=== PATIENT | female | born 1970 | race Caucasian/White ===

== ENCOUNTER 2019-03-24 02:47 | Inpatient (IN) | payer MEDICAID, OTHER, SELFPAY ==
[~2019-03-24] VITALS: Ht 167.6 cm; Wt 73.4 kg
[2019-03-24] MEDS ORDERED: diphenhydrAMINE 25 MG CAP PO ONE (04:15)
[2019-03-24] MEDS ORDERED: traZODone 50 MG TAB PO ONE (04:30)
[2019-03-24] MEDS ORDERED: ALPR0.25 PO (07:54)
[2019-03-24] MEDS ORDERED: ACET-683 PO (07:54)
[2019-03-24] MEDS ORDERED: SERT50TA29 PO (07:54)
[2019-03-24] MEDS ORDERED: INSUHUMDS SC (07:54)
[2019-03-24] MEDS ORDERED: BASA100I SC (07:54)
[2019-03-24] MEDS ORDERED: BACT800T5 PO (07:56)
[2019-03-24] MEDS: BACTRIM 160MG/800MG DS TAB PO SCH ×3 (08:58→23:12)
[2019-03-24] MEDS ORDERED: SERTRALINE HCL 50 MG TAB PO ONE (09:00)
[2019-03-24] MEDS ORDERED: VOLT1GEL15 TOP (10:09)
[2019-03-24] MEDS ORDERED: SERT25TA85 PO (10:09)
[2019-03-24] MEDS ORDERED: VIVE0.03 TD (10:09)
[2019-03-24] MEDS ORDERED: ALPRAZolam 0.25 MG TAB PO ONE (11:30)
[2019-03-24] MEDS ORDERED: MAALOX 30 ML SUSP *UDC PO PRN (15:00)
[2019-03-24] MEDS ORDERED: MOM 30ML SUSPENSION UDC PO PRN (15:00)
[2019-03-24 21:00] VITALS: BP 116/66
[2019-03-24] MEDS: traZODone 50 MG TAB PO PRN (22:29)
[2019-03-24] MEDS ORDERED: GLUCAGON FOR INJ 1 MG VIAL (J1610) SC PRN (22:30)
[2019-03-24] MEDS ORDERED: DEXTROSE 50% 50 ML SYRINGE IV PRN (22:30)
[2019-03-24] MEDS ORDERED: GLUCOSE 4 GM CHEW TABLET PO PRN (22:30)
[2019-03-24] MEDS: IBUPROFEN 400 MG TAB PO PRN (22:31)
[2019-03-25 06:52] VITALS: BP 95/54
[2019-03-25] MEDS: HumaLOG INSULIN (NovoLOG) PER UNIT SC SCH ×3 (07:43→17:19)
[2019-03-25] MEDS: BACTRIM 160MG/800MG DS TAB PO SCH ×2 (08:49→20:18)
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
[2019-03-25] MEDS ORDERED: SERTRALINE 100 MG TAB PO ONE (14:00)
[2019-03-25] MEDS ORDERED: SUMAtriptan SUCCINATE 25 MG TAB PO ONE (14:45)
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
[2019-03-25 16:24] VITALS: BP 112/69
[2019-03-25] MEDS: LEVEMIR (INSULIN DETEMIR) 1 UNITS/0.01ML SC SCH (20:18)
[2019-03-25] MEDS: traZODone 50 MG TAB PO PRN (21:24)
[2019-03-26 06:57] VITALS: BP 90/50
[2019-03-26 07:07] LABS: HEMATOCRIT 33.4 % (36.0-47.0); MEAN CORPUSCULAR HEMOGLOBIN 28.4 pg (27.0-33.0); MEAN CORPUSCULAR HGB CONC 32.9 g/dl (32.0-36.5); MEAN CORPUSCULAR VOLUME 86.1 fl (80.0-96.0); PLATELET COUNT, AUTOMATED 295 10^3/uL (150-450); RED BLOOD COUNT 3.88 10^6/uL (4.00-5.40); WHITE BLOOD COUNT 6.8 10^3/uL (4.0-10.0)
[2019-03-26] MEDS: HumaLOG INSULIN (NovoLOG) PER UNIT SC SCH ×3 (07:23→17:07)
[2019-03-26 07:27] LABS: ERYTHROCYTE SEDIMENTATION RATE 35 mm/hr (0-30)
[2019-03-26 07:41] LABS: ALBUMIN 3.3 GM/DL (3.2-5.2); ALT/SGPT 17 U/L (12-78); BILIRUBIN,TOTAL 0.3 MG/DL (0.2-1.0); BLOOD UREA NITROGEN 16 MG/DL (7-18); CALCIUM LEVEL 9.2 MG/DL (8.5-10.1); CARBON DIOXIDE LEVEL 27 MEQ/L (21-32); CHLORIDE LEVEL 109 MEQ/L (98-107); CHOLESTEROL LEVEL 177 MG/DL (<200); CHOLESTEROL RISK RATIO 3.612 (<5); CREATININE FOR GFR 0.91 MG/DL (0.55-1.30); GLOMERULAR FILTRATION RATE > 60.0 (>51); GLUCOSE, FASTING 124 MG/DL (70-100); HDL CHOLESTEROL 49 MG/DL (>40); LDL CHOLESTEROL 109 MG/DL (<100); MAGNESIUM LEVEL 2.4 MG/DL (1.8-2.4); NON-HDL-C 128 MG/DL; POTASSIUM SERUM 4.7 MEQ/L (3.5-5.1); SODIUM LEVEL 142 MEQ/L (136-145); TOTAL PROTEIN 6.4 GM/DL (6.4-8.2); TRIGLYCERIDES LEVEL 96 MG/DL (<150)
[2019-03-26 08:06] LABS: HEMOGLOBIN A1c 8.1 %
[2019-03-26] MEDS: BACTRIM 160MG/800MG DS TAB PO SCH (08:29)
[2019-03-26] MEDS: SUMAtriptan SUCCINATE 25 MG TAB PO PRN (08:29)
[2019-03-26] MEDS: SERTRALINE 100 MG TAB PO SCH (08:29)
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
--- NOTE | 2019-03-26 13:18 | IPNPDOC ---
Text Note Date of Service The patient was seen on 03/26/19. NOTE Subjective: Patient seen and examined. No medical complaints. objective: General: NAD, sitting comfortably at edge of exam table HEENT: NC/AT Lungs: CTA B/L Heart: +S1S2, RRR Abd: soft, NT, +BS Ext: no edema A/P: 48 yo female transferred from [facility] for psychiatric disturbance, complicated with UTI #UTI - no sensitivities regarding bactrim, will transition to cipro - currently asymptomatic, but was symptomatic previously #psych - as per primary team VS,Jeannette, I+O VS, Jeannette, I+O Laboratory Tests 03/26/19 06:45 Red Blood Count 3.88 L, Mean Corpuscular Volume 86.1, Mean Corpuscular Hemoglobin 28.4, Mean Corpuscular Hemoglobin Concent 32.9, Red Cell Distribution Width 13.6, Calcium Level 9.2, Aspartate Amino Transf (AST/SGOT) 10, Alanine Aminotransferase (ALT/SGPT) 17, Alkaline Phosphatase 90, Total Bilirubin 0.3, Triglycerides Level 96, LDL Cholesterol 109 H, Total Protein 6.4, Albumin 3.3 Vital Signs Date Time Temp Pulse Resp B/P (MAP) Pulse Ox O2 Delivery O2 Flow Rate FiO2 03/26/19 06:57 99.7 62 12 90/50 (63) 03/24/19 18:45 97 Room Air NILSON WANG MD Mar 26, 2019 13:18
[2019-03-26] MEDS ORDERED: POLYSPORIN TOPICAL OINTMENT 15GM TOP ONE (13:30)
[2019-03-26] MEDS: IBUPROFEN 400 MG TAB PO PRN (14:17)
[2019-03-26] MEDS: LACTOBACILLUS ACIDOPHILUS CAP (BACID) PO SCH ×2 (17:07→20:16)
[2019-03-26] MEDS: CIPROFLOXACIN 500 MG TAB PO SCH (17:07)
[2019-03-26 17:21] VITALS: BP 112/65
[2019-03-26] MEDS: LEVEMIR (INSULIN DETEMIR) 1 UNITS/0.01ML SC SCH (20:16)
[2019-03-26] MEDS: MIRTAZAPINE 15 MG TAB PO SCH (20:16)
[2019-03-26] MEDS: POLYSPORIN TOPICAL OINTMENT 15GM TOP PRN (21:06)
[2019-03-26 23:01] LABS: CLOSTRIDIUM DIFFICILE PCR NEGATIVE (NEGATIVE)
[2019-03-27] MEDS: CIPROFLOXACIN 500 MG TAB PO SCH ×2 (06:12→17:29)
[2019-03-27 06:49] VITALS: BP 112/62
[2019-03-27] MEDS: HumaLOG INSULIN (NovoLOG) PER UNIT SC SCH ×3 (07:29→17:11)
[2019-03-27] MEDS: LACTOBACILLUS ACIDOPHILUS CAP (BACID) PO SCH ×4 (07:47→20:18)
[2019-03-27] MEDS: SERTRALINE 100 MG TAB PO SCH (08:09)
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
[2019-03-27 18:04] VITALS: BP 110/73
[2019-03-27] MEDS: MIRTAZAPINE 15 MG TAB PO SCH (20:18)
[2019-03-27] MEDS: LEVEMIR (INSULIN DETEMIR) 1 UNITS/0.01ML SC SCH (20:18)
[2019-03-28] MEDS: CIPROFLOXACIN 500 MG TAB PO SCH ×2 (05:40→17:26)
[2019-03-28] MEDS: HumaLOG INSULIN (NovoLOG) PER UNIT SC SCH ×3 (05:46→17:27)
[2019-03-28] MEDS: POLYSPORIN TOPICAL OINTMENT 15GM TOP PRN (05:53)
[2019-03-28 06:04] VITALS: BP 106/65
[2019-03-28] MEDS: LACTOBACILLUS ACIDOPHILUS CAP (BACID) PO SCH ×4 (07:37→20:39)
[2019-03-28] MEDS: SERTRALINE 100 MG TAB PO SCH (08:21)
--- NOTE | 2019-03-28 12:37 | IPNPDOC ---
Text Note Date of Service The patient was seen on 03/28/19. NOTE Subjective: Patient seen and examined. No new medical complaints. Denies dysuria, polyuria. No further episodes of diarrhea. objective: General: NAD, sitting comfortably at edge of exam table HEENT: NC/AT Lungs: CTA B/L Heart: +S1S2, RRR Abd: soft, NT, +BS Ext: no edema A/P: 48 yo female transferred from [facility] for psychiatric disturbance, complicated with UTI #UTI - tolerating Cipro; will finish course on 03/29/19 - currently asymptomatic, but was symptomatic previously #diarrhea - brief episode - resolved - CDiff negative #psych - as per primary team VS,Fishbone, I+O VS, Fishbone, I+O Vital Signs Date Time Temp Pulse Resp B/P (MAP) Pulse Ox O2 Delivery O2 Flow Rate FiO2 03/28/19 06:04 98.3 68 18 106/65 (79) 03/24/19 18:45 97 Room Air NILSON WANG MD Mar 28, 2019 12:37
[2019-03-28 16:17] VITALS: BP 118/67
--- NOTE | 2019-03-28 19:55 | MHIPN ---
DATE: 03/28/2019 The patient today states "I'm okay." Then she specifies that she is a little anxious, but able to tolerate it at this point. She says she is not suicidal and she says that she did sleep good. MENTAL STATUS EXAMINATION: She is alert, oriented times three. Eye contact is fairly good. Psychomotor activity is normal. She says her mood is anxious. Affect full range and appropriate. She is not psychotic, suicidal or homicidal. Concentration is fair. Memory intact. Insight and judgment is fair. DIAGNOSES: 1. Posttraumatic stress disorder (PTSD). 2. Unspecified depressive disorder. 3. Generalized anxiety disorder. TREATMENT PLAN: At this point, we will continue to further evaluate this patient for continued elevation and stabilization of her mood and continued resolution of suicidal ideations and we will continue to titrate the medication as indicated.
[2019-03-28] MEDS: MIRTAZAPINE 15 MG TAB PO SCH (20:39)
[2019-03-28] MEDS: HYDROCORTISONE 1% CREAM 30 GM TOP SCH (20:40)
[2019-03-28] MEDS: LEVEMIR (INSULIN DETEMIR) 1 UNITS/0.01ML SC SCH (21:18)
[2019-03-29] MEDS: CIPROFLOXACIN 500 MG TAB PO SCH (05:32)
[2019-03-29 06:37] VITALS: BP 110/62
[2019-03-29] MEDS: HumaLOG INSULIN (NovoLOG) PER UNIT SC SCH ×3 (07:16→17:20)
[2019-03-29] MEDS: LACTOBACILLUS ACIDOPHILUS CAP (BACID) PO SCH ×4 (07:50→20:26)
[2019-03-29] MEDS: SERTRALINE 100 MG TAB PO SCH (08:27)
[2019-03-29] MEDS: HYDROCORTISONE 1% CREAM 30 GM TOP SCH ×2 (08:28→20:25)
[2019-03-29] MEDS: POLYSPORIN TOPICAL OINTMENT 15GM TOP PRN (15:19)
[2019-03-29 16:30] VITALS: BP 134/69
[2019-03-29] MEDS: MIRTAZAPINE 15 MG TAB PO SCH (20:26)
[2019-03-29] MEDS: LEVEMIR (INSULIN DETEMIR) 1 UNITS/0.01ML SC SCH (21:03)
[2019-03-30] MEDS: SUMAtriptan SUCCINATE 25 MG TAB PO PRN (05:58)
[2019-03-30] MEDS: POLYSPORIN TOPICAL OINTMENT 15GM TOP PRN (06:33)
[2019-03-30 06:36] VITALS: BP 109/68
--- NOTE | 2019-03-30 06:47 | IPNPDOC ---
Text Note Date of Service The patient was seen on 03/29/19. NOTE Subjective: Patient seen and examined. No new medical complaints. Denies dysuria, polyuria. No further episodes of diarrhea. objective: General: NAD, sitting comfortably at edge of exam table HEENT: NC/AT Lungs: CTA B/L Heart: +S1S2, RRR Abd: soft, NT, +BS Ext: no edema A/P: 48 yo female transferred from [facility] for psychiatric disturbance, complicated with UTI #UTI - tolerating Cipro; will finish course today - currently asymptomatic, but was symptomatic previously #diarrhea - brief episode - resolved - CDiff negative #psych - as per primary team VS,Fishbone, I+O VS, Fishbone, I+O Vital Signs Date Time Temp Pulse Resp B/P (MAP) Pulse Ox O2 Delivery O2 Flow Rate FiO2 03/30/19 06:36 97.7 74 12 109/68 (82) 03/24/19 18:45 97 Room Air NILSON WANG MD Mar 30, 2019 06:47
[2019-03-30] MEDS: HumaLOG INSULIN (NovoLOG) PER UNIT SC SCH (07:16)
[2019-03-30] MEDS: LACTOBACILLUS ACIDOPHILUS CAP (BACID) PO SCH (07:56)
[2019-03-30] MEDS: SERTRALINE 100 MG TAB PO SCH (08:28)
[2019-03-30] MEDS: HYDROCORTISONE 1% CREAM 30 GM TOP SCH (08:29)
[2019-03-30] MEDS ORDERED: SERT-138 PO (08:51)
[2019-03-30] MEDS ORDERED: REME15TA PO (08:51)
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
== END 2019-03-30 11:55 | disposition home or self-care (01) | DRG 755 ==
LOC: M ED 02:47 → M ED INP 14:53 → M PSY 20:36
PROVIDERS: ADMIT Psychiatry & Neurology Psychiatry; ATTEND Psychiatry & Neurology Psychiatry
DX: F43.10 Post-traumatic stress disorder, unspecified (principal); N39.0 Urinary tract infection, site not specified; F41.1 Generalized anxiety disorder; F32.9 Major depressive disorder, single episode, unspecified; R19.7 Diarrhea, unspecified; E11.9 Type 2 diabetes mellitus without complications; J45.909 Unspecified asthma, uncomplicated; H91.91 Unspecified hearing loss, right ear; M54.16 Radiculopathy, lumbar region; Z96.21 Cochlear implant status; Z79.4 Long term (current) use of insulin; Z79.899 Other long term (current) drug therapy; S61.511A Laceration without foreign body of right wrist, initial encounter; Z62.810 Personal history of physical and sexual abuse in childhood; Z98.84 Bariatric surgery status; Z90.710 Acquired absence of both cervix and uterus; Z90.49 Acquired absence of other specified parts of digestive tract; Z62.811 Personal history of psychological abuse in childhood; X78.9XXA Intentional self-harm by unspecified sharp object, initial encounter; Y92.009 Unspecified place in unspecified non-institutional (private) residence as the place of occurrence of the external cause; Z63.0 Problems in relationship with spouse or partner